=== PATIENT | female | born 1930 | race Caucasian/White ===

== ENCOUNTER → 2019-09-28 | Outpatient (CLI) | payer MEDICARE, BC | END | disposition home or self-care (01) | LOC: CVU 13:38 | PROVIDERS: ATTEND Internal Medicine Cardiovascular Disease | DX: I08.8 Other rheumatic multiple valve diseases (principal); I65.23 Occlusion and stenosis of bilateral carotid arteries; I10 Essential (primary) hypertension; E78.5 Hyperlipidemia, unspecified; I48.91 Unspecified atrial fibrillation | CPT/HCPCS: 93306; 93880 ==

== ENCOUNTER → 2020-01-03 | Outpatient (CLI) | payer MEDICARE, BC ==
[~2020-01-03] MED LIST: ACET-1600 PO; ASPI-496 PO; DILT-8 PO; DIPH25CA61 PO; LEVO75TA PO; LOSA25TA25 PO; MAGN400T9 PO; MELA1TAB15 PO; MULT-717 PO; RIVA20TA PO; ROPI0.254 PO; ROSU20TA2 PO; VITA1CAP PO
[2020-01-03 15:21] LABS: BASOPHILS # (AUTO) 0.03 x10^3/uL (0-0.1); BASOPHILS % (AUTO) 0 % (0-1); EOSINOPHILS # (AUTO) 0.13 x10^3/uL (0-0.4); EOSINOPHILS % (AUTO) 1 % (1-7); LYMPHOCYTES % (AUTO) 20 % (22-44); MD NO; MEAN CORPUSCULAR HEMOGLOBIN 31.7 pg (27.0-34.8); MEAN CORPUSCULAR HGB CONC 33.3 g/dL (32.4-35.8); MEAN CORPUSCULAR VOLUME 95.4 fL (80-100); MEAN PLATELET VOLUME 8.4 fL (7.4-10.4); MONOCYTES # (AUTO) 0.64 x10^3/uL (0.2-0.8); MONOCYTES % (AUTO) 7 % (2-9); NEUTROPHILS # (AUTO) 6.54 x10^3/uL (1.8-6.8); NEUTROPHILS % (AUTO) 72 % (42-75); PLATELET COUNT 189 x10^3/uL (130-400); RED BLOOD COUNT 4.48 x10^6/uL (3.82-5.3); RED CELL DISTRIBUTION WIDTH 13.1 % (9.6-15.2)
[2020-01-03 15:31] LABS: ALBUMIN 3.8 g/dL (3.4-5.0); ANION GAP 7 mmol/L (5-15); CALCIUM 8.9 mg/dL (8.5-10.1); CHLORIDE 107 mmol/L (98-107)
[2020-01-03 15:37] LABS: ALANINE AMINOTRANSFERASE 21 U/L (12-78); ALKALINE PHOSPHATASE 65 U/L (45-117); BILIRUBIN,TOTAL 0.7 mg/dL (0.2-1.0); CREATININE 1.35 mg/dL (0.55-1.02); TOTAL PROTEIN 6.9 g/dL (6.4-8.2)
== END | disposition home or self-care (01) ==
LOC: STAR 14:35
PROVIDERS: ATTEND Surgery
DX: Z01.818 Encounter for other preprocedural examination (principal); I65.21 Occlusion and stenosis of right carotid artery
CPT/HCPCS: 36415; 80053; 85025; 93005

== ENCOUNTER 2020-01-07 07:42 | Inpatient (IN) | payer MEDICARE, BC ==
[~2020-01-07] VITALS: Ht 165.1 cm; Wt 66.7 kg
[2020-01-07] MEDS ORDERED: LACTATED RINGERS 1,000 ML IV SCH (07:53)
[2020-01-07] MEDS ORDERED: ACETAMINOPHEN 500 MG TABLET PO ONE (08:30)
[2020-01-07] MEDS ORDERED: ONDANSETRON 2MG/ML, 2ML IV PRN (09:00)
[2020-01-07] MEDS ORDERED: HYDROmorphone 2 MG/ML, 1ML IVPush PRN (09:00)
[2020-01-07] MEDS ORDERED: LABETALOL 5MG/ML, 20ML IV PRN (09:00)
[2020-01-07] MEDS ORDERED: EPHEDRINE 50 MG/ML, 1ML IVPush PRN (09:00)
[2020-01-07] MEDS ORDERED: hydrALAzine 20 MG/ML, 1ML IV PRN (09:00)
[2020-01-07] MEDS ORDERED: PROMETHAZINE 25 MG/ML, 1ML IV PRN (09:00)
[2020-01-07] MEDS ORDERED: OXYcodone 5 MG/5 ML ORAL.SOL UDC PO PRN (09:00)
[2020-01-07] MEDS ORDERED: BUPIVACAINE/PF 0.5% ONE (10:04)
[2020-01-07] MEDS ORDERED: PROTAMINE SULFATE 10 MG/ML, 5ML ONE (10:04)
[2020-01-07] MEDS ORDERED: HEPARIN 1,000 UNITS/ML, 10ML ONE (10:04)
[2020-01-07] MEDS ORDERED: PAPAVERINE 30 MG/ML, 2ML ONE (10:04)
[2020-01-07] MEDS ORDERED: THROMBIN 5,000 UNIT VIAL TP ONE (10:04)
[2020-01-07] MEDS ORDERED: EPINEPHRINE 1 MG/ML, 1ML ONE (10:05)
[2020-01-07] MEDS ORDERED: LIDOCAINE 1%, 20ML ONE (10:05)
[2020-01-07] MEDS ORDERED: FENTANYL PF 250 MCG/5ML ONE (10:26)
[2020-01-07] MEDS ORDERED: hydrALAzine 20 MG/ML, 1ML ONE ×3 (11:22→13:44)
[2020-01-07] MEDS ORDERED: CEFAZOLIN 1,000 MG ONE ×2 (11:22→11:54)
[2020-01-07] MEDS ORDERED: LIDOCAINE PF 2%, 5ML ONE (11:22)
[2020-01-07] MEDS ORDERED: PROPOFOL 10 MG/ML, 20ML ONE (11:54)
[2020-01-07] MEDS ORDERED: ONDANSETRON 2MG/ML, 2ML ONE (11:54)
[2020-01-07] MEDS ORDERED: PHENYLEPHRINE 10 MG/ML ONE (11:54)
[2020-01-07] MEDS ORDERED: SUCCINYLCHOLINE 20 MG/ML, 10ML ONE (11:54)
[2020-01-07] MEDS ORDERED: DEXAMETHASONE 4 MG/ML, 1ML ONE (11:54)
[2020-01-07] MEDS ORDERED: GLYCOPYRROLATE 0.2MG/1ML, 5ML ONE ×2 (12:01)
[2020-01-07] MEDS ORDERED: ASPIRIN 81 MG TABLET EC ONE (13:43)
[2020-01-07] MEDS ORDERED: ASPIRIN 81 MG TABLET EC PO ONE (14:00)
[2020-01-07] MEDS ORDERED: OXYcodone 5 MG/5 ML ORAL.SOL UDC ONE (14:07)
[2020-01-07] MEDS ORDERED: FENTANYL PF 100 MCG/2ML ONE (14:08)
[2020-01-07] MEDS: FENTANYL PF 100 MCG/2ML IV PRN ×3 (14:15→14:45)
[2020-01-07] MEDS ORDERED: MEPERIDINE/PF 25MG/ML,1ML ONE (14:53)
[2020-01-07] MEDS: MEPERIDINE/PF 25MG/ML,1ML IVPush PRN ×2 (15:00→15:15)
[2020-01-07] MEDS ORDERED: IBUPROFEN 600 MG TABLET PO ONE (16:00)
[2020-01-07 16:30] VITALS: BP 146/61
[2020-01-07] MEDS ORDERED: LABETALOL 5MG/ML, 20ML IVPush PRN (17:00)
[2020-01-07] MEDS ORDERED: HYDROcodone/APAP 5/325 TABLET PO PRN (17:00)
[2020-01-07] MEDS ORDERED: morphine SULFATE 10 MG/ML, 1ML IV PRN (17:00)
[2020-01-07] MEDS: DIPHENHYDRAMINE MC SCH (17:30)
[2020-01-07] MEDS: PYRIDOXINE MC SCH (17:30)
[2020-01-07] MEDS: MELATONIN MC SCH (17:30)
[2020-01-07] MEDS: LACTATED RINGERS 1,000 ML IV SCH (17:55)
[2020-01-07 19:18] VITALS: BP 159/69
[2020-01-07] MEDS ORDERED: TEMPLATE NON-FORMULARY MED. (CRESTOR 20 MG) PO SCH (21:00)
[2020-01-07] MEDS: CEFAZOLIN PMX 1GM/50ML 50 ML IVPB SCH (21:16)
[2020-01-07] MEDS: LOSARTAN 25MG TABLET PO SCH (21:16)
[2020-01-07] MEDS: ACETAMINOPHEN 325 MG TABLET PO PRN (21:16)
[2020-01-07] MEDS: hydrALAzine 20 MG/ML, 1ML IV PRN (23:42)
[2020-01-08] VITALS (16 sets, daily range): BP systolic 147–193; BP diastolic 51–92
[2020-01-08] MEDS: DIPHENHYDRAMINE MC SCH ×3 (01:30→17:34)
[2020-01-08] MEDS: PYRIDOXINE MC SCH ×3 (01:30→17:34)
[2020-01-08] MEDS: MELATONIN MC SCH ×3 (01:30→17:34)
[2020-01-08] MEDS: hydrALAzine 20 MG/ML, 1ML IV PRN ×4 (03:12→17:19)
[2020-01-08] MEDS: ACETAMINOPHEN 325 MG TABLET PO PRN ×4 (03:12→21:36)
[2020-01-08] MEDS: CEFAZOLIN PMX 1GM/50ML 50 ML IVPB SCH (03:58)
[2020-01-08] MEDS ORDERED: IBUPROFEN 600 MG TABLET PO ONE (04:30)
[2020-01-08] MEDS: LABETALOL 20 MG/4 ML IVPush PRN ×3 (04:44→08:35)
[2020-01-08] MEDS: LEVOTHYROXINE 75 MCG TABLET PO SCH (05:41)
[2020-01-08] MEDS: ASPIRIN 81 MG TABLET EC PO SCH (05:41)
[2020-01-08] MEDS: ROPINIROLE 0.25MG TABLET PO SCH (08:22)
[2020-01-08] MEDS: LOSARTAN 25MG TABLET PO SCH (08:22)
[2020-01-08] MEDS: MAGNESIUM OXIDE 400 MG TABLET PO SCH (08:22)
[2020-01-08] MEDS: DILTIAZEM 120 MG CAP.ER.24H PO SCH (08:25)
[2020-01-08] MEDS: LACTATED RINGERS 1,000 ML IV SCH ×2 (08:37→21:21)
[2020-01-08] MEDS: SENNA/DOCUSATE TABLET PO SCH ×2 (09:33→21:36)
[2020-01-08] MEDS: LABETALOL 100 MG TABLET PO SCH ×3 (10:00→21:59)
[2020-01-08] MEDS: LOSARTAN 50MG TABLET PO SCH (21:36)
[2020-01-08] MEDS: ATORVASTATIN 80 MG TABLET PO SCH (21:37)
[2020-01-08] MEDS: DIPHENHYDRAMINE 25 MG CAPSULE PO PRN (23:58)
[2020-01-09] VITALS (7 sets, daily range): BP systolic 134–187; BP diastolic 50–69
[2020-01-09] MEDS: PYRIDOXINE MC SCH ×3 (00:07→20:43)
[2020-01-09] MEDS: MELATONIN MC SCH ×3 (00:07→20:43)
[2020-01-09] MEDS: DIPHENHYDRAMINE MC SCH ×3 (00:07→20:43)
[2020-01-09] MEDS: hydrALAzine 20 MG/ML, 1ML IV PRN (00:09)
[2020-01-09] MEDS: ASPIRIN 81 MG TABLET EC PO SCH (06:03)
[2020-01-09] MEDS: LEVOTHYROXINE 75 MCG TABLET PO SCH (06:03)
[2020-01-09] MEDS: LABETALOL 100 MG TABLET PO SCH (06:03)
[2020-01-09] MEDS: LACTATED RINGERS 1,000 ML IV SCH ×2 (07:32→19:38)
[2020-01-09] MEDS: MAGNESIUM OXIDE 400 MG TABLET PO SCH (09:17)
[2020-01-09] MEDS: DILTIAZEM 120 MG CAP.ER.24H PO SCH (09:18)
[2020-01-09] MEDS: ACETAMINOPHEN 325 MG TABLET PO PRN (09:19)
[2020-01-09] MEDS: LOSARTAN 50MG TABLET PO SCH ×2 (09:19→20:41)
[2020-01-09] MEDS: SENNA/DOCUSATE TABLET PO SCH ×2 (09:19→20:42)
[2020-01-09] MEDS ORDERED: DILTIAZEM 5 MG/ML, 5ML IVPush ONE (18:00)
[2020-01-09] MEDS: LABETALOL 200 MG TABLET PO SCH (18:09)
[2020-01-09] MEDS: ATORVASTATIN 80 MG TABLET PO SCH (20:41)
[2020-01-09] MEDS: ROPINIROLE 0.25MG TABLET PO SCH (20:41)
[2020-01-10 01:07] VITALS: BP 107/63
[2020-01-10] MEDS: DIPHENHYDRAMINE MC SCH ×2 (01:46→09:30)
[2020-01-10] MEDS: PYRIDOXINE MC SCH ×2 (01:46→09:30)
[2020-01-10] MEDS: MELATONIN MC SCH ×2 (01:46→09:30)
[2020-01-10] MEDS: ASPIRIN 81 MG TABLET EC PO SCH (05:13)
[2020-01-10] MEDS: LEVOTHYROXINE 75 MCG TABLET PO SCH (05:14)
[2020-01-10] MEDS: ACETAMINOPHEN 325 MG TABLET PO PRN ×2 (05:14→13:59)
[2020-01-10] MEDS: LACTATED RINGERS 1,000 ML IV SCH ×2 (05:19→19:57)
[2020-01-10 07:21] VITALS: BP 130/58
[2020-01-10 10:10] VITALS: BP 116/64
[2020-01-10] MEDS: LOSARTAN 50MG TABLET PO SCH ×2 (10:14→21:16)
[2020-01-10] MEDS: MAGNESIUM OXIDE 400 MG TABLET PO SCH (10:14)
[2020-01-10] MEDS: DILTIAZEM 120 MG CAP.ER.24H PO SCH (10:14)
[2020-01-10] MEDS: SENNA/DOCUSATE TABLET PO SCH ×2 (10:14→21:17)
[2020-01-10] MEDS: LABETALOL 200 MG TABLET PO SCH ×2 (10:18→18:23)
[2020-01-10 14:17] VITALS: BP 103/65
[2020-01-10] MEDS ORDERED: RIVAROXABAN 20 MG TABLET PO SCH ×2 (18:25→21:00)
[2020-01-10 21:04] VITALS: BP 112/63
[2020-01-10] MEDS: DIPHENHYDRAMINE 25 MG CAPSULE PO PRN (21:16)
[2020-01-10] MEDS: ROPINIROLE 0.25MG TABLET PO SCH (21:16)
[2020-01-10] MEDS: ATORVASTATIN 80 MG TABLET PO SCH (21:16)
[2020-01-11 01:37] VITALS: BP 109/59
[2020-01-11] MEDS: ACETAMINOPHEN 325 MG TABLET PO PRN ×3 (01:37→12:37)
[2020-01-11] MEDS: ASPIRIN 81 MG TABLET EC PO SCH (05:36)
[2020-01-11] MEDS: LEVOTHYROXINE 75 MCG TABLET PO SCH (05:37)
[2020-01-11] MEDS: LACTATED RINGERS 1,000 ML IV SCH (06:36)
[2020-01-11 08:29] VITALS: BP 143/62
[2020-01-11] MEDS: DILTIAZEM 120 MG CAP.ER.24H PO SCH (08:33)
[2020-01-11] MEDS: LABETALOL 200 MG TABLET PO SCH (08:33)
[2020-01-11] MEDS: SENNA/DOCUSATE TABLET PO SCH (08:34)
[2020-01-11] MEDS: MAGNESIUM OXIDE 400 MG TABLET PO SCH (08:34)
[2020-01-11] MEDS: LOSARTAN 50MG TABLET PO SCH (08:34)
[2020-01-11] MEDS ORDERED: LOSA50TA14 PO (12:04)
[2020-01-11] MEDS ORDERED: LABE200T6 PO (12:05)
[2020-01-11] MEDS ORDERED: RIVAROXABAN 15 MG TABLET PO SCH (17:00)
== END 2020-01-11 14:14 | disposition home or self-care (01) | DRG 39 ==
LOC: ORIP 07:42 → EDSTATUS 10:00 → 4NE 16:29 → 5SO 01-08 11:41 → DCLOUNGE 01-11 13:52
PROVIDERS: ADMIT Surgery; ATTEND Surgery
PROC: 03CH0ZZ Extirpation of Matter from Right Common Carotid Artery, Open Approach (ICD-10-PCS; 2020-01-07)
PROC: 03CM0ZZ Extirpation of Matter from Right External Carotid Artery, Open Approach (ICD-10-PCS; 2020-01-07)
PROC: 03UH0KZ Supplement Right Common Carotid Artery with Nonautologous Tissue Substitute, Open Approach (ICD-10-PCS; 2020-01-07)
PROC: 03UK0KZ Supplement Right Internal Carotid Artery with Nonautologous Tissue Substitute, Open Approach (ICD-10-PCS; 2020-01-07)
PROC: 03UM0KZ Supplement Right External Carotid Artery with Nonautologous Tissue Substitute, Open Approach (ICD-10-PCS; 2020-01-07)
PROC: 03CK0ZZ Extirpation of Matter from Right Internal Carotid Artery, Open Approach (ICD-10-PCS; principal; 2020-01-07 10:00)
DX: I65.23 Occlusion and stenosis of bilateral carotid arteries (principal); I10 Essential (primary) hypertension; E03.9 Hypothyroidism, unspecified; E78.5 Hyperlipidemia, unspecified; I48.0 Paroxysmal atrial fibrillation; I73.9 Peripheral vascular disease, unspecified; Z87.891 Personal history of nicotine dependence; Z90.710 Acquired absence of both cervix and uterus; Z82.49 Family history of ischemic heart disease and other diseases of the circulatory system; Z90.49 Acquired absence of other specified parts of digestive tract
CPT/HCPCS: 36415; 86850; 86900; 93005; G0378; J0171; J0690; J1100; J1644; J2405; J2704; J2720; J3010; C1768; J0330; J0360; J2175; J2370; J2440; J7120; Q0163

== ENCOUNTER → 2020-04-15 | Outpatient (CLI) | payer MEDICARE, BC ==
[~2020-04-15] MED LIST changes: +AMIO200T42 PO; +CLON0.2T PO; +HYDR12.517 PO; +LABE200T6 PO; +LOSA50TA14 PO; +RIVA15TA PO
== END | disposition home or self-care (01) ==
LOC: CVU 14:27
PROVIDERS: ATTEND Surgery
DX: I65.23 Occlusion and stenosis of bilateral carotid arteries (principal)
CPT/HCPCS: 93880

== ENCOUNTER → 2020-06-20 | Outpatient (CLI) | payer MEDICARE, BC | END | disposition home or self-care (01) | LOC: CFH 11:41 | PROVIDERS: ATTEND Internal Medicine Cardiovascular Disease | DX: I10 Essential (primary) hypertension (principal); E78.2 Mixed hyperlipidemia; I48.0 Paroxysmal atrial fibrillation; I65.23 Occlusion and stenosis of bilateral carotid arteries; Z95.0 Presence of cardiac pacemaker | CPT/HCPCS: 71046 ==

== ENCOUNTER → 2021-01-08 | Outpatient (CLI) | payer MEDICARE, BC | END | disposition home or self-care (01) | LOC: CFH 11:40 | PROVIDERS: ATTEND Internal Medicine Cardiovascular Disease | DX: I65.23 Occlusion and stenosis of bilateral carotid arteries (principal); E03.9 Hypothyroidism, unspecified; E78.00 Pure hypercholesterolemia, unspecified; E78.2 Mixed hyperlipidemia; I10 Essential (primary) hypertension; I16.0 Hypertensive urgency; I48.0 Paroxysmal atrial fibrillation | CPT/HCPCS: 71046 ==

== ENCOUNTER → 2021-01-13 | Outpatient (CLI) | payer MEDICARE, BC | END | disposition home or self-care (01) | LOC: CVU 08:53 | PROVIDERS: ATTEND Surgery | DX: I65.23 Occlusion and stenosis of bilateral carotid arteries (principal) | CPT/HCPCS: 93880 ==

== ENCOUNTER 2021-06-25 14:14 | Emergency (ER) | payer MEDICARE, BC ==
[~2021-06-25] VITALS: Ht 167.6 cm; Wt 72.0 kg
[2021-06-25 14:25] VITALS: BP 139/49
--- NOTE | 2021-06-25 15:02 | NUR ---
PA AT BS
[2021-06-25] MEDS ORDERED: FLUORESCEIN OPHTHALMIC 1 MG STRIP ONE (15:11)
[2021-06-25] MEDS ORDERED: FLUORESCEIN OPHTHALMIC 1 MG STRIP OP ONE (15:30)
--- NOTE | 2021-06-25 15:43 | NUR ---
ERP AT BS FOR EVAL
--- NOTE | 2021-06-25 16:23 | NUR ---
Patient is resting comfortably in bed. Bed in lowest, rails engaged, call light on lap. Vital Signs within normal limits. WCTM.
--- NOTE | 2021-06-25 16:27 | NUR ---
PA AT BS TO UPDATE PT ON POC
--- NOTE | 2021-06-25 16:44 | NUR ---
Patient/Caregiver given discharge instructions and they have confirmed that they understand the instructions. Patient ambulatory with steady gait.
== END 2021-06-25 16:45 | disposition home or self-care (01) ==
LOC: ED 15:17
DX: L20.84 Intrinsic (allergic) eczema (principal); I10 Essential (primary) hypertension; Z87.891 Personal history of nicotine dependence
CPT/HCPCS: 99283

== ENCOUNTER → 2021-07-01 | Outpatient (CLI) | payer MEDICARE, BC ==
[2021-07-01 11:15] LABS: BASOPHILS % (AUTO) 1 % (0-1); EOSINOPHILS % (AUTO) 2 % (1-7); LYMPHOCYTES % (AUTO) 15 % (22-44); MEAN CORPUSCULAR HGB CONC 33.2 g/dL (32.4-35.8); MEAN PLATELET VOLUME 7.3 fL (7.4-10.4); MONOCYTES % (AUTO) 10 % (2-9); NEUTROPHILS % (AUTO) 73 % (42-75); PLATELET COUNT 240 x10^3/uL (130-400); RED BLOOD COUNT 4.06 x10^6/uL (3.82-5.3); RED CELL DISTRIBUTION WIDTH 13.3 % (9.6-15.2)
[2021-07-01 11:25] LABS: ALBUMIN 3.3 g/dL (3.4-5.0); ANION GAP 5 mmol/L (5-15); CALCIUM 8.8 mg/dL (8.5-10.1); CHLORIDE 105 mmol/L (98-107)
[2021-07-01 11:36] LABS: ALANINE AMINOTRANSFERASE 29 U/L (12-78); ALKALINE PHOSPHATASE 62 U/L (45-117); BILIRUBIN,TOTAL 0.7 mg/dL (0.2-1.0); CHOL/HDL RATIO 2.2; CHOLESTEROL, TOTAL 139 mg/dL (140-239); CREATININE 1.16 mg/dL (0.55-1.02); HDL CHOL % 46 % (28-40); HDL CHOLESTEROL (DIRECT) 64 mg/dL (40-60); LDL CHOLESTEROL,CALCULATED 61 mg/dL (54-169); T4 (THYROXINE) 15.8 mcg/dL (4.8-13.9); TOTAL PROTEIN 6.9 g/dL (6.4-8.2); TRIGLYCERIDES 69 mg/dL (50-200); VLDL CHOLESTEROL 14 mg/dL (0-25)
== END | disposition home or self-care (01) ==
LOC: LAB 10:44
PROVIDERS: ATTEND Internal Medicine Cardiovascular Disease
DX: E78.2 Mixed hyperlipidemia (principal); I10 Essential (primary) hypertension; I48.0 Paroxysmal atrial fibrillation; I65.23 Occlusion and stenosis of bilateral carotid arteries; Z95.0 Presence of cardiac pacemaker
CPT/HCPCS: 36415; 71046; 80053; 80061; 84436; 84443; 84481; 85025

== ENCOUNTER 2021-07-24 06:45 | Outpatient (CLI) | payer MEDICARE, BC | END 2021-07-24 23:59 | disposition home or self-care (01) | LOC: CVU 06:45 | PROVIDERS: ATTEND Surgery | DX: I65.23 Occlusion and stenosis of bilateral carotid arteries (principal); E78.5 Hyperlipidemia, unspecified; I10 Essential (primary) hypertension; Z98.890 Other specified postprocedural states | CPT/HCPCS: 93880 ==